=== PATIENT | male | born 1985 | race Caucasian/White ===

== ENCOUNTER 2017-05-01 11:00 | Inpatient (IN) | payer MEDICARE, OTHER ==
--- NOTE | ~2017-05-01 | HP ---
Unit #: [id number] #: [id number] Patient: MARIBEL MERCEDES [id number] [place] [address] [id number] MR#: [id number] NAME: MARIBEL MERCEDES. ROOM: [facility] Age: 32 Sex: M Admission Date: 05/01/2017 : 1985 Attending Physician: Grady Griffin M.D. Admitting Physician: Grady Griffin M.D. Primary Care Physician: Primary Care Physician No HISTORY AND PHYSICAL HISTORY OF PRESENT ILLNESS The patient is a 32-year-old male admitted to [facility] on 05/01/2017 for alcohol abuse. PAST MEDICAL HISTORY The patient denies. PAST SURGICAL HISTORY The patient denies. SOCIAL HISTORY He is disabled. He lives with his sister. He smokes one pack of cigarettes daily and drinks 17 to 18 beers per day. FAMILY MEDICAL HISTORY Noncontributory. ALLERGIES No known drug allergies. CURRENT MEDICATIONS The patient is not on any home medications. REVIEW OF SYSTEMS CONSTITUTIONAL: No fever or chills. HEENT: Denies any sore throat, ear pain or runny nose. CARDIOVASCULAR: Denies chest pain, irregular heart rhythm or palpitations. CHEST: Denies shortness of breath or cough. No hemoptysis. GASTROINTESTINAL: Denies nausea, vomiting, diarrhea or chronic constipation. ENDOCRINE: Denies history of increased thirst or urination. No recent significant weight loss or gain. GENITOURINARY: Denies dysuria, frequency, or hematuria. SKIN: Denies any rashes. HEMATOLOGIC: Denies history of increased bleeding or bruising. MUSCULOSKELETAL: Denies any hot, swollen joints. No generalized muscle pain. NEUROLOGIC: Denies problems with vision or speech. No frequent, severe headaches. No numbness, tingling or weakness in any extremities. Denies loss of bladder or bowel control. PHYSICAL EXAM GENERAL: He is awake, alert and oriented in no acute distress. Unit #: [id number] #: [id number] Patient: MARIBEL MERCEDES VITAL SIGNS: Temperature 98.2, heart rate 75, respiration 18, blood pressure 164/98. HEIGHT: 6'0". WEIGHT: 190 pounds. SKIN: Warm and dry without rash or lesion. HEENT: Normocephalic. TMs not viewed. Oral and nasal passages clear. Conjunctivae clear. PERRLA. EOMs intact. NECK: Supple without lymphadenopathy or thyromegaly. HEART: Regular rate and rhythm without murmur. LUNGS: Clear. ABDOMEN: Soft, nontender. : Not done. EXTREMITIES: No evidence of cyanosis, clubbing or edema. Moves all without focal deficit. NEUROLOGICAL: Grossly within normal limits. Cranial Nerves: II: Visual rodriguez are intact. III, IV AND : Extraocular movements are intact. Pupils are equal, round and reactive to light. V: Facial sensation is grossly normal. VII: Facial movements and expression are normal. VIII: Auditory acuity grossly intact. IX, X: Uvula is midline. Phonation is normal. XI: Patient shrugs shoulders and turns head normally. XII: Tongue protrudes in the midline. Sensory and Motor Function: Sensory and motor sensation is grossly normal. Motor: moves all extremities well. IMPRESSION 1. Psychiatric admission. 2. Alcohol abuse. 3. Nicotine dependence. RECOMMENDATIONS Psychiatric per psychiatrist. MEDICAL: No contraindication to participate in facility activities. MEDICAL PROGNOSIS Good. MEDICAL CONDITION Stable. Dictated by... Anjel Escobedo/katy TD: 05/03/2017 05:15 JOB #: [id number] Unit #: [id number] #: [id number] Patient: MARIBEL MERCEDES HISTORY AND PHYSICAL Page 1 of 1 X EDGARD FRITZ APRN HISTORY AND PHYSICAL
--- NOTE | ~2017-05-01 | DS ---
Unit #: [id number] #: [id number] Patient: MARIBEL MERCEDES [id number] [facility] [address] [place] [address] [id number] MR#: [id number] NAME: MARIBEL MERCEDES. ROOM: [facility] Age: 32 Sex: M Admission Date: 05/01/2017 : 1985 Discharge Date: 05/03/2017 Attending Physician: Grady Griffin M.D. Primary Care Physician: Primary Care Physician No DISCHARGE SUMMARY REASON FOR ADMISSION Depression and alcohol abuse. DIAGNOSTIC STUDIES LABORATORY RESULTS: Remarkable for AST 84 and ALT 59. HOSPITAL COURSE The patient was admitted to inpatient unit on 05/01/2017 and discharged on 05/03/2017. The patient was treated on the inpatient unit with expressive therapy, psychoeducation, psychotherapy, and chemical dependency group. The patient responded well with the above modalities of treatment and detox protocol. The patient was subsequently discharged with a plan to follow up in outpatient program. DISCHARGE MEDICATIONS None. DISCHARGE DIAGNOSES Psychiatric: 1. Mood disorder, not otherwise specified, F32.9. 2. Anxiety disorder, not otherwise specified, F41.9. 3. Alcohol use disorder, severe, F10.20. Secondary diagnosis: Deferred. Medical diagnosis: None. Stressors: Psychosocial stressors. DISCHARGE INSTRUCTIONS The patient is to follow up in outpatient clinic as per psychiatric social worker. CONDITION ON DISCHARGE The patient was pleasant and cooperative. Denied any psychotic symptom or any suicidal ideation. PROGNOSIS Guarded. DIET AND ACTIVITY As tolerated. Dictated by... Unit #: [id number] #: [id number] Patient: MARIBEL MERCEDES Grady Griffin M.D. SZC/walil TD: 05/03/2017 23:31 JOB #: [id number] DISCHARGE SUMMARY Page 1 of 1 X Grady Griffin MD X DISCHARGE SUMMARY
--- NOTE | ~2017-05-01 | PN ---
Unit #: [id number] #: [id number] Patient: MARIBEL YEBOAH [id number] [facility] [address] [place] [address] [id number] MR#: [id number] NAME: MARIBEL YEBOAH. ROOM: [facility] Age: 32 Sex: M Admission Date: 05/01/2017 : 1985 Attending Physician: Grady Griffin M.D. Admitting Physician: Christiana Black NOTES DATE OF SERVICE: 05/02/2017 DISCUSSION Maribel Yeboah is a 32-year-old male. The patient was seen on 05/02/2017. The patient interviewed, chart reviewed, and obtained information from nursing staff. The patient continues to be sad, dysphoric, anxious, withdrawn, flat affect, sad and dysphoric, adjusting fairly well to unit rules. REVIEW OF SYSTEMS Complete review of systems unremarkable MENTAL STATUS EXAMINATION General appearance, the patient dressed casually. Attention span and concentration, fair. Oriented in place and person. Mood and affect, sad and dysphoric. Speech, monotone. Thought process, concrete. The patient denied any thoughts of harming self or others, but sad and depressed. The patient's vital signs; temperature 98.2, pulse 75, respirations 18, blood pressure 139/77. Recent and remote memory, poor. Insight and judgment, poor. DIAGNOSES 1. Mood disorder, not otherwise specified. 2. Alcohol use disorder, severe. ASSESSMENT AND PLAN Advised to continue with current medication and therapeutic protocol. If needed, consider further adjustment of medication. Dictated by... Christiana Black/mabel TD: 05/03/2017 03:13 JOB #: [id number] Unit #: [id number] #: [id number] Patient: MARIBEL YEBOAH JOSE NOTES Page 1 of 1 X Grady Griffin MD PROGRESS NOTE
--- NOTE | ~2017-05-01 | PA ---
Unit #: [id number] #: [id number] Patient: MARIBEL YEBOAH [id number] [facility] [address] [place] [address] [id number] MR#: [id number] NAME: MARIBEL YEBOAH. ROOM: 76 Age: 32 Sex: M Admission Date: 05/01/2017 : 1985 Date of Assessment: 05/02/2017 Attending Physician: Grady Griffin M.D. Admitting Physician: Grady Griffin M.D. Primary Care Physician: Primary Care Physician No PSYCHIATRIC ASSESSMENT INFORMANTS The patient's reliability, fair; chart reliability, good. CHIEF COMPLAINT Depression and alcohol abuse. HISTORY OF PRESENT ILLNESS Mr. Maribel Yeboah is a 32-year-old male, presented with the above-mentioned complaint. The patient has a history of previous treatment outpatient through [facility]. The patient has a good support system from sister, currently disabled. The patient was admitted on a 72-hour hold, brought by [facility] on 04/30/2017. The patient reported about thoughts of harming himself in the emergency room. The patient, however, denied later. The patient reported drinking 17 to 18 beers daily from the last 10 years with no period of sobriety. The patient denied any use of other substances. Denied any homicidal ideation. The patient on 72-hour hold. The patient reported tobacco use, age of onset 16; alcohol, age of onset 22. The patient's blood alcohol level was 0.338. Negative tox screen. The patient has a history of blackout, history of withdrawal symptoms. No history . Restlessness, diaphoresis, headache, irritability, nervousness, sleep problem. PAST PSYCHIATRIC HISTORY Remarkable for history of previous treatment through [facility]. FAMILY HISTORY AND SOCIAL HISTORY The patient has a good support system from sister. No history of any abuse or legal problems. MEDICAL HISTORY Unremarkable for any chronic DICTATION ENDS HERE Dictated by... Grady Griffin M.D. Unit #: [id number] #: [id number] Patient: MARIBEL YEBOAH WALTER/mabel TD: 05/02/2017 23:45 JOB #: [id number] PSYCHIATRIC ASSESSMENT Page 1 of 1 X Grady Griffin MD PSYCHIATRIC ASSESSMENT
--- NOTE | ~2017-05-01 | PA ---
Unit #: [id number] #: [id number] Patient: MARIBEL YEBOAH [id number] [facility] [address] [place] [address] [id number] MR#: [id number] NAME: MARIBEL YEBOAH. ROOM: 76 Age: 32 Sex: M Admission Date: 05/01/2017 : 1985 Date of Assessment: 05/02/2017 Attending Physician: Grady Griffin M.D. Admitting Physician: Grady Griffin M.D. Primary Care Physician: Primary Care Physician No PSYCHIATRIC ASSESSMENT INFORMANTS The patient's reliability, fair; chart reliability, good. CHIEF COMPLAINT Depression and alcohol abuse. HISTORY OF PRESENT ILLNESS Mr. Maribel Yeboah is a 32-year-old male, presented with the above-mentioned complaint. The patient has a history of previous treatment outpatient through [facility]. The patient has a good support system from sister, currently disabled. The patient was admitted on a 72-hour hold, brought by [facility] on 04/30/2017. The patient reported about thoughts of harming himself in the emergency room. The patient, however, denied later. The patient reported drinking 17 to 18 beers daily from the last 10 years with no period of sobriety. The patient denied any use of other substances. Denied any homicidal ideation. The patient on 72-hour hold. The patient reported tobacco use, age of onset 16; alcohol, age of onset 22. The patient's blood alcohol level was 0.338. Negative tox screen. The patient has a history of blackout, history of withdrawal symptoms. No history Restlessness, diaphoresis, headache, irritability, nervousness, sleep problem. PAST PSYCHIATRIC HISTORY Remarkable for history of previous treatment through [facility]. FAMILY HISTORY AND SOCIAL HISTORY The patient has a good support system from sister. No history of any abuse or legal problems. MEDICAL HISTORY Unremarkable for any chronic PAST PSYCHIATRIC HISTORY Remarkable for history of previous treatment through [facility] in 1990. FAMILY HISTORY AND SOCIAL HISTORY The patient has a good support from sister. No history of abuse. MEDICAL HISTORY Unit #: [id number] #: [id number] Patient: MARIBEL YEBOAH Unremarkable for any chronic medical illness. Musculoskeletal; muscle strength and tone, no atrophy or abnormal movement. Gait normal. MEDICATION HISTORY None. ALLERGIES No known drug allergies. SUBSTANCE ABUSE HISTORY History of tobacco use, age of onset 16; alcohol, age of onset 22. The patient reported withdrawal symptoms such as restlessness, diaphoresis, headache, irritability, nervousness. There is history of blackout, history of withdrawal symptoms. No history of any IV drug use. No history of any HIV or hepatitis. REVIEW OF SYSTEMS HEENT: Eyes, clear. Ears, nose, mouth, and throat; clear. CARDIOVASCULAR: Unremarkable. RESPIRATORY: Unremarkable. GI: Unremarkable. : Unremarkable. SKIN: Unremarkable. LYMPH NODE: Unremarkable. NEUROLOGIC: Unremarkable. ENDOCRINE: Unremarkable. HEMATOLOGIC: Unremarkable. ALLERGIC/IMMUNOLOGIC: Unremarkable. MUSCULOSKELETAL: Muscle strength and tone, no atrophy or abnormal movement. Gait normal. MENTAL STATUS EXAMINATION CONSTITUTIONAL: Measurement of vital signs; temperature 98.2, pulse 75, respirations 18, oxygen saturation 100%, and blood pressure 164/98. Height 6 feet and weight 190 pounds. GENERAL APPEARANCE: The patient dressed casually. The patient did not show any facial deformity. MUSCULOSKELETAL: Please see above. PSYCHIATRIC EXAMINATION Description of speech; regular rate, normal volume, normal articulation, coherent. Description of thought process, goal directed. Description of association, intact. Description of abnormal psychotic thinking; the patient denied any hallucination or delusions, but sad, depressed anxious, and substance abuse. Description of the patient's judgment; concerning everyday activity, poor. Social situation, poor. Concerning psychiatric condition, poor. Complete mental status examination; oriented in time, place, and person. Recent and remote memory, fair. Attention span and concentration, fair. Language, able to name object and repeat phrases. Fund of knowledge, aware of current event and passive vocabulary intact. Mood and affect, sad and dysphoric. Insight and judgment, fair to poor. ASSETS AND LIABILITIES Assets; the patient articulate, able to take care of his ADL. Liability; history of substance abuse, depression. Unit #: [id number] #: [id number] Patient: MARIBEL YEBOAH ADMITTING DIAGNOSES Psychiatric: Major depressive disorder, recurrent, severe, F33.2; alcohol use disorder, severe, F10.20. Secondary diagnosis: Deferred. Medical diagnosis: None. Stressors: Psychosocial stressors. PSYCHIATRIC PLAN AND TREATMENT GOAL 1. Advised to admit the patient on the inpatient unit. Provide safe, supportive, and structured environment. 2. Ordered labs; CBC, CMP, UA, and UDS. 3. Detox protocol and detox monitoring. If needed, consider medication for depression, SSRI. 4. Treatment goal to attain euthymic mood, gain insight into his problem, and learn coping skills. DISCHARGE PLAN Plan to stabilize the patient and consider followup in outpatient program. ESTIMATED LENGTH OF STAY 5 days Hussain TD: 05/02/2017 23:45 JOB #: [id number] Dictated by... Christiana Black TD: 05/03/2017 01:07 JOB #: [id number] PSYCHIATRIC ASSESSMENT Page 1 of 1 X Grady Griffin MD PSYCHIATRIC ASSESSMENT
[2017-05-02 14:15] LABS: ALBUMIN SERUM 4.4 g/dL (3.5-5.0); BUN/CREATININE RATIO 11.66; CALCIUM SERUM 9.6 mg/dL (8.4-10.2); CREATININE SERUM 0.6 mg/dL (0.6-1.4); GLOM FILT RATE Estimated 131.2 mL/min (>60); POTASSIUM 3.9 mmol/L (3.5-5.1); PROTEIN TOTAL SERUM 7.3 g/dL (6.0-8.3)
== END 2017-05-03 10:00 | DRG 885 ==
LOC: P1E 12:27
PROVIDERS: Psychiatry & Neurology Psychiatry
PROC: HZ2ZZZZ Detoxification Services for Substance Abuse Treatment (ICD-10-PCS; principal; 2017-05-02)
DX: F33.2 Major depressive disorder, recurrent severe without psychotic features (principal); F41.9 Anxiety disorder, unspecified; F10.20 Alcohol dependence, uncomplicated; F17.210 Nicotine dependence, cigarettes, uncomplicated
CPT/HCPCS: 80053; 86592